=== PATIENT | female | born 1985 | race Caucasian/White ===

== ENCOUNTER 2018-07-11 21:35 | Observation (INO) | payer MEDICAID, OTHER ==
[2018-07-11] MEDS ORDERED: Sodium Chloride 0.9% 1,000 ML IV SCH (22:15)
[2018-07-11] MEDS ORDERED: HYDROmorphone 1 MG/ML Syringe IVPUSH ONE (22:44)
[2018-07-11] MEDS ORDERED: Ondansetron 4 MG/2 ML SDV IVPUSH ONE (23:03)
--- NOTE | 2018-07-11 23:12 | EDM.PDOC ---
ED HPI GENERAL MEDICAL PROBLEM - General Chief Complaint: Flank Pain Stated Complaint: STONE Time Seen by Provider: 07/11/18 22:06 Source of Information: Reports: Patient, Family History Limitations: Reports: No Limitations - History of Present Illness INITIAL COMMENTS - FREE TEXT/NARRATIVE: Abdominal pain: This is a 32-year-old female presents emergency room with complaints of abdominal pain for 1 week. She comes in tonight due to worsening pain, nausea and abdominal bloating. She did eat supper on few bites of artichoke dip and chips and 2 and half chicken wings. Past history of kidney stones, surgeries for kidney stones, laparoscopic Yoly, hysterectomy, tummy tuck Duration: Week(s): (1), Getting Worse Location: Reports: Abdomen Quality: Reports: Same as Previous Episode Severity: Moderate Improves with: Reports: None Worsens with: Reports: None Associated Symptoms: Reports: Loss of Appetite, Nausea/Vomiting, Weakness Right Lower Abdominal Pain Score (Numeric/FACES): 8 - Related Data Allergies Allergy/AdvReac Type Severity Reaction Status Date / Time cefaclor [From Ceclor] Allergy Rash Verified 09/05/15 13:26 cephalexin monohydrate Allergy Hives Verified 09/05/15 13:26 [From Keflex] doxycycline Allergy Hives Verified 09/05/15 13:26 Iodinated Contrast- Oral and Allergy Hives Verified 09/05/15 13:26 IV Dye Penicillins Allergy Hives Verified 09/05/15 13:26 Sulfa (Sulfonamide Allergy Hives Verified 09/05/15 13:26 Antibiotics) Home Meds: Home Meds Albuterol Sulfate [Proair Hfa] 8.5 gm IH Q4H PRN 08/30/13 [History] metFORMIN [Glucophage XR] 500 mg PO DAILY 08/30/13 [History] Tamsulosin HCl [Flomax] 0.4 mg PO DAILY 12/04/15 [History] oxyCODONE HCl/Acetaminophen [Percocet 5-325 mg Tablet] 1 tab PO Q4H 12/04/15 [ History] Spironolactone 50 mg PO DAILY 07/11/18 [History] Past Medical History - Past Health History Medical/Surgical History: Denies Medical/Surgical History Respiratory History: Reports: Asthma Genitourinary History: Reports: Renal Calculus Other Genitourinary History: 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: Endometrial Ablation, Polycystic Ovaries, , Spontaneous Other Dermatologic History: acne - Infectious Disease History Infectious Disease History: Reports: Chicken Pox - Past Surgical History GI Surgical History: Reports: Cholecystectomy, Hernia, Abdominal Social & Family History - Tobacco Use Smoking Status *Q: Never Smoker - Caffeine Use Caffeine Use: Reports: Coffee - Recreational Drug Use Recreational Drug Use: No - Living Situation & Occupation Occupation: Employed ED ROS GENERAL - Review of Systems Review Of Systems: See Below Constitutional: Reports: Other (Abdominal pain and discomfort 1 week) HEENT: Reports: No Symptoms Respiratory: Reports: No Symptoms Cardiovascular: Reports: No Symptoms Endocrine: Reports: No Symptoms GI/Abdominal: Reports: Abdominal Pain, Distension : Reports: Flank Pain (Right) Musculoskeletal: Reports: Back Pain (Right-sided) Skin: Reports: No Symptoms Neurological: Reports: No Symptoms Psychiatric: Reports: No Symptoms Hematologic/Lymphatic: Reports: No Symptoms Immunologic: Reports: No Symptoms ED EXAM, GENERAL - Physical Exam Exam: See Below Exam Limited By: No Limitations General Appearance: Alert, WD/WN, Moderate Distress (Appears ill and uncomfortable.) Eye Exam: Bilateral Eye: Normal Inspection Ears: Normal External Exam Nose: Normal Inspection Throat/Mouth: Normal Inspection Head: Atraumatic, Normocephalic Neck: Normal Inspection, Supple, Full Range of Motion Respiratory/Chest: No Respiratory Distress, No Accessory Muscle Use Cardiovascular: No Edema GI/Abdominal: Distended (Mild), Tender (Right upper quadrant), Abnormal Bowel Sounds (Hypoactive bowel sounds noted throughout the abdomen.) (Female) Exam: Deferred Rectal (Female) Exam: Deferred Back Exam: Normal Inspection, CVA Tenderness (R) (Right), Muscle Spasm Extremities: Normal Inspection, Normal Range of Motion, Non-Tender, Normal Capillary Refill, No Pedal Edema Neurological: Alert, Oriented, CN II-XII Intact, Normal Cognition, Normal Gait, Normal Reflexes, No Motor/Sensory Deficits Psychiatric: Normal Affect, Normal Mood, Tearful Skin Exam: Warm, Dry, Intact, Normal Color, No Rash Lymphatic: No Adenopathy Course - Vital Signs Last Recorded V/S: Last Vital Signs Temp 36.2 C 07/11/18 22:06 Pulse 76 07/11/18 23:28 Resp 18 07/11/18 23:28 BP 132/75 07/11/18 23:28 Pulse Ox 94 L 07/11/18 23:28 - Orders/Labs/Meds Orders: Active Orders 24 hr Category Date Time Status Patient Status Manage Transfer [TRANSFER] Routine ADT 07/12/18 00:04 Ordered Abdomen Pelvis wo Cont [CT] Stat Exams 07/11/18 22:54 Taken UA W/MICROSCOPIC [URIN] Urgent Lab 07/11/18 22:05 Ordered Sodium Chloride 0.9% [Normal Saline] 1,000 ml Med 07/11/18 22:15 Active IV ASDIRECTED Resuscitation Status Routine Resus Stat 07/12/18 00:05 Ordered Medication Orders Sodium Chloride (Normal Saline) 1,000 mls @ 999 mls/hr IV ASDIRECTED JEANIE Last Admin: 07/11/18 22:33 Dose: 999 mls/hr Labs: Laboratory Tests 07/11/18 07/11/18 07/11/18 Range/Units 22:05 22:06 22:12 WBC 8.7 (4.5-11.0) K/uL RBC 4.81 (3.30-5.50) M/uL Hgb 14.3 (12.0-15.0) g/dL Hct 40.9 (36.0-48.0) % MCV 85 (80-98) fL MCH 30 (27-31) pg MCHC 35 (32-36) % Plt Count 225 (150-400) K/uL Neut % (Auto) 59 (36-66) % Lymph % (Auto) 32 (24-44) % [place] % (Auto) 7 H (2-6) % Eos % (Auto) 2 (2-4) % Baso % (Auto) 1 (0-1) % Sodium 139 L (140-148) mmol/L Potassium 3.9 (3.6-5.2) mmol/L Chloride 105 (100-108) mmol/L Carbon Dioxide 25 (21-32) mmol/L Anion Gap 12.9 (5.0-14.0) mmol/L BUN 17 (7-18) mg/dL Creatinine 0.9 (0.6-1.0) mg/dL Est Cr Clr Drug Dosing 69.66 mL/min Estimated GFR (MDRD) > 60 (>60) Glucose 114 H (74-106) mg/dL Calcium 9.0 (8.5-10.1) mg/dL Urine Color Yellow Urine Appearance Clear Urine pH 6.0 (4.5-8.0) Ur Specific [place] 1.010 (1.008-1.030) Urine Protein Negative (NEGATIVE) mg/dL Urine Glucose (UA) Normal (NEGATIVE) mg/dL Urine Ketones Negative (NEGATIVE) mg/dL Urine Occult Blood Negative (NEGATIVE) Urine Nitrite Negative (NEGATIVE) Urine Bilirubin Negative (NEGATIVE) Urine Urobilinogen Normal (NORMAL) mg/dL Ur Leukocyte Esterase Negative (NEGATIVE) Urine RBC Not seen (0-5) Urine WBC 0-5 (0-5) Ur Epithelial Cells Few Amorphous Sediment Not seen Urine Bacteria Moderate Urine Mucus Not seen Meds: Medications Generic Name Dose Route Start Last Admin Trade Name Freq PRN Reason Stop Dose Admin Sodium Chloride 1,000 mls @ 999 mls/hr 07/11/18 22:15 07/11/18 22:33 Normal Saline IV 999 mls/hr ASDIRECTED JEANIE Administration Discontinued Medications Generic Name Dose Route Start Last Admin Trade Name Freq PRN Reason Stop Dose Admin Fentanyl 50 mcg 07/11/18 23:19 07/11/18 23:24 Sublimaze IVPUSH 07/11/18 23:20 50 mcg ONETIME ONE Administration Hydromorphone HCl 1 mg 07/11/18 22:44 07/11/18 23:02 Dilaudid IVPUSH 07/11/18 22:45 1 mg ONETIME ONE Administration Ondansetron HCl 4 mg 07/11/18 23:03 07/11/18 23:05 Zofran IVPUSH 07/11/18 23:04 4 mg ONETIME ONE Administration - Re-Assessments/Exams Free Text/Narrative Re-Assessment/Exam: 07/11/18 23:13 Will order CBC, chemistry, urine, to rule out illness, disease Imaging abdominal pelvis CT without contrast, patient has contrast dye allergy. IV fluids normal saline at 1000 mL's per hour, Zofran 4 mg IV, Dilaudid 1 mg IV Discussed with Mrs. Weeks and partner the plan of care. They agree with plan of care Departure - Departure Time of Disposition: 00:31 Disposition: Admitted As Inpatient 64 Condition: Good Clinical Impression: Flank pain - Discharge Information Instructions: Kidney Stones, [id number], Flank Pain, Adult, [id number] Referrals: PCP,None [Primary Care Provider] - Forms: ED Department Discharge Care Plan Goals: Transferred to [address] [place] [address] admission observation status - Problem List & Annotations (1) Kidney stone SNOMED Code(s): 88295596 Code(s): N20.0 - CALCULUS OF KIDNEY Status: Acute Priority: High Current Visit: Yes (2) Flank pain SNOMED Code(s): 379309527 Code(s): R10.9 - UNSPECIFIED ABDOMINAL PAIN Status: Acute Priority: High Current Visit: Yes - Problem List Review Problem List Initiated/Reviewed/Updated: Yes - My Orders Last 24 Hours: My Active Orders 07/11/18 22:05 UA W/MICROSCOPIC [URIN] Urgent 07/11/18 22:15 Sodium Chloride 0.9% [Normal Saline] 1,000 ml IV ASDIRECTED 07/11/18 22:54 Abdomen Pelvis wo Cont [CT] Stat 07/12/18 00:04 Patient Status Manage Transfer [TRANSFER] Routine 07/12/18 00:05 Resuscitation Status Routine - Assessment/Plan Last 24 Hours: My Active Orders 07/11/18 22:05 UA W/MICROSCOPIC [URIN] Urgent 07/11/18 22:15 Sodium Chloride 0.9% [Normal Saline] 1,000 ml IV ASDIRECTED 07/11/18 22:54 Abdomen Pelvis wo Cont [CT] Stat 07/12/18 00:04 Patient Status Manage Transfer [TRANSFER] Routine 07/12/18 00:05 Resuscitation Status Routine Plan: Transferred to [address] [place] [address] admission observation status
[2018-07-11] MEDS ORDERED: fentaNYL 100 MCG/2 ML SDV IVPUSH ONE (23:19)
--- NOTE | 2018-07-12 00:25 | PCM.HP ---
H&P History of Present Illness - General Date of Service: 07/11/18 Admit Problem/Dx: Admission Diagnosis/Problem Admission Diagnosis/Problem Kidney stone Source of Information: Patient, Family () - History of Present Illness Duration of Symptoms: Reports: Week(s): (one) Location: Reports: Abdomen, Back Quality: Reports: Same as Previous Episode Severity: Severe (rates pain 10/10) Improves with: Reports: Medication Worsens with: Reports: None Associated Symptoms: Reports: Loss of Appetite, Malaise, Nausea/Vomiting, Other (Insomnia) Right Lower Abdominal Pain Score (Numeric/FACES): 8 - Related Data Allergies/Adverse Reactions: Allergies Allergy/AdvReac Type Severity Reaction Status Date / Time cefaclor [From Ceclor] Allergy Rash Verified 09/05/15 13:26 cephalexin monohydrate Allergy Hives Verified 09/05/15 13:26 [From Keflex] doxycycline Allergy Hives Verified 09/05/15 13:26 Iodinated Contrast- Oral and Allergy Hives Verified 09/05/15 13:26 IV Dye Penicillins Allergy Hives Verified 09/05/15 13:26 Sulfa (Sulfonamide Allergy Hives Verified 09/05/15 13:26 Antibiotics) Home Medications: Home Meds Albuterol Sulfate [Proair Hfa] 8.5 gm IH Q4H PRN 08/30/13 [History] metFORMIN [Glucophage XR] 500 mg PO DAILY 08/30/13 [History] Tamsulosin HCl [Flomax] 0.4 mg PO DAILY 12/04/15 [History] oxyCODONE HCl/Acetaminophen [Percocet 5-325 mg Tablet] 1 tab PO Q4H 12/04/15 [ History] Spironolactone 50 mg PO DAILY 07/11/18 [History] Past Medical History - Past Health History Medical/Surgical History: Denies Medical/Surgical History Respiratory History: Reports: Asthma Genitourinary History: Reports: Renal Calculus Other Genitourinary History: 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, Polycystic Ovaries, , Spontaneous Other Dermatologic History: acne - Infectious Disease History Infectious Disease History: Reports: Chicken Pox - Past Surgical History GI Surgical History: Reports: Cholecystectomy, Hernia, Abdominal Social & Family History - Tobacco Use Smoking Status *Q: Never Smoker - Caffeine Use Caffeine Use: Reports: Coffee - Recreational Drug Use Recreational Drug Use: No - Living Situation & Occupation Occupation: Employed H&P Review of Systems - Review of Systems: Review Of Systems: See Below General: Reports: Fatigue HEENT: Reports: No Symptoms Pulmonary: Reports: No Symptoms Cardiovascular: Reports: No Symptoms Gastrointestinal: Reports: Abdominal Pain, Distension, Nausea, Vomiting Genitourinary: Reports: Dysuria, Pain Musculoskeletal: Reports: Back Pain (Right-sided flank pain), Muscle Pain Skin: Reports: No Symptoms Psychiatric: Reports: No Symptoms Neurological: Reports: No Symptoms Hematologic/Lymphatic: Reports: No Symptoms Immunologic: Reports: No Symptoms Exam - Exam Exam: See Below - Vital Signs Vital Signs: Last Vital Signs Temp 36.2 C 07/11/18 22:06 Pulse 76 07/11/18 23:28 Resp 18 07/11/18 23:28 BP 132/75 07/11/18 23:28 Pulse Ox 94 L 07/11/18 23:28 Weight: 72.1 kg - Exam General: Alert, Oriented, Severe Distress (Rates pain 10 on a 10) HEENT: PERRLA, Conjunctiva Clear, EACs Clear, EOMI, Hearing Intact, Nares Patent , Pupils Equal, Pupils Reactive, TMs Clear Neck: Supple, Trachea Midline Lungs: Clear to Auscultation Cardiovascular: Regular Rate, Regular Rhythm, Normal S1, Normal S2 GI/Abdominal Exam: Normal Bowel Sounds, Distended, Tender (Especially right mid to upper quadrant) (Female) Exam: Deferred Rectal (Female) Exam: Deferred Back Exam: CVA Tenderness (R), Muscle Spasm Extremities: Normal Inspection, Normal Range of Motion, Non-Tender, No Pedal Edema, Normal Capillary Refill Skin: Warm, Dry, Intact Neurological: Cranial Nerves Intact, Reflexes Equal Bilateral Neuro Extensive - Mental Status: Alert, Oriented x3, Normal Mood/Affect, Normal Cognition, Memory Intact Neuro Extensive - Motor, Sensory, Reflexes: CN II-XII Intact, Normal Gait, Normal Reflexes Psychiatric: Anxious (Tearful from being in pain) - Patient Data Lab Results Last 24 hrs: Laboratory Results - last 24 hr 07/11/18 07/11/18 07/11/18 Range/Units 22:05 22:06 22:12 WBC 8.7 (4.5-11.0) K/uL RBC 4.81 (3.30-5.50) M/uL Hgb 14.3 (12.0-15.0) g/dL Hct 40.9 (36.0-48.0) % MCV 85 (80-98) fL MCH 30 (27-31) pg MCHC 35 (32-36) % Plt Count 225 (150-400) K/uL Neut % (Auto) 59 (36-66) % Lymph % (Auto) 32 (24-44) % [place] % (Auto) 7 H (2-6) % Eos % (Auto) 2 (2-4) % Baso % (Auto) 1 (0-1) % Sodium 139 L (140-148) mmol/L Potassium 3.9 (3.6-5.2) mmol/L Chloride 105 (100-108) mmol/L Carbon Dioxide 25 (21-32) mmol/L Anion Gap 12.9 (5.0-14.0) mmol/L BUN 17 (7-18) mg/dL Creatinine 0.9 (0.6-1.0) mg/dL Est Cr Clr Drug Dosing 69.66 mL/min Estimated GFR (MDRD) > 60 (>60) Glucose 114 H (74-106) mg/dL Calcium 9.0 (8.5-10.1) mg/dL Urine Color Yellow Urine Appearance Clear Urine pH 6.0 (4.5-8.0) Ur Specific [place] 1.010 (1.008-1.030) Urine Protein Negative (NEGATIVE) mg/dL Urine Glucose (UA) Normal (NEGATIVE) mg/dL Urine Ketones Negative (NEGATIVE) mg/dL Urine Occult Blood Negative (NEGATIVE) Urine Nitrite Negative (NEGATIVE) Urine Bilirubin Negative (NEGATIVE) Urine Urobilinogen Normal (NORMAL) mg/dL Ur Leukocyte Esterase Negative (NEGATIVE) Urine RBC Not seen (0-5) Urine WBC 0-5 (0-5) Ur Epithelial Cells Few Amorphous Sediment Not seen Urine Bacteria Moderate Urine Mucus Not seen Result Diagrams: 07/11/18 22:06 07/11/18 22:12 - Problem List (1) Flank pain SNOMED Code(s): 160158515 ICD Code: R10.9 - UNSPECIFIED ABDOMINAL PAIN Status: Acute Priority: High Current Visit: Yes Problem List Initiated/Reviewed/Updated: Yes Orders Last 24hrs: Active Orders 24 hr Category Date Time Status Patient Status Manage Transfer [TRANSFER] Routine ADT 07/12/18 00:04 Ordered Abdomen Pelvis wo Cont [CT] Stat Exams 07/11/18 22:54 Taken UA W/MICROSCOPIC [URIN] Urgent Lab 07/11/18 22:05 Ordered Sodium Chloride 0.9% [Normal Saline] 1,000 ml Med 07/11/18 22:15 Active IV ASDIRECTED Resuscitation Status Routine Resus Stat 07/12/18 00:05 Ordered Medication Orders Sodium Chloride (Normal Saline) 1,000 mls @ 999 mls/hr IV ASDIRECTED JEANIE Last Admin: 07/11/18 22:33 Dose: 999 mls/hr Assessment/Plan Comment:: ASSESSMENT / PLAN -pt arrived with severe abdominal and right sided flank pain with a past week. She is feeling nauseated with severe back and low abdomen pain. She reports pain has been consistent 1 week, unable to sleep for the past 2-3 nights due to pain. labs done is ER , CBC, CMP; normal. Urine with micro negative for hematuria or infectious process. Imaging: Abdomen pelvis without contrast there are punctuate 1 mm stone present in the mid zone and lower pole of the right kidney. No definite ureteral calculi seen. In the lower pole of the left kidney there is a 1 mm and 4 mm stone present. A 1 mm stone is present in the mid zone of the left kidney. No definite ureteral calculi seen. Plan -Admit Observation 2 North for further monitoring Bilateral Kidney stones, with right flank pain -Iv fluids Normal Saline at 125ml/hr -pain medication, fentanyl [employer]ESSION[employer] pump -Advise to notify nurses of any fever, chills, worsen pain or other symptoms -strain all urine -And a.m. labs: CBC, BMP Maintenance issues -Orders home meds: on hold -Nutrition: 2 g sodium diet -Angel catheter not indicated at this time -DVT: SCDs -GI Prophalaxis; Protonix 40mg daily CODE STATUS: Full Admission status: Admit to Observation -I expect this patient to stay less than 24 hours, not to exceed 96 hours for evaluation and management of this problem. Disposition: home with family [facility]
[2018-07-12] MEDS ORDERED: Docusate Sodium 100 MG Cap PO PRN (00:39)
[2018-07-12] MEDS ORDERED: Acetaminophen 325 MG Tab PO PRN (00:39)
[2018-07-12] MEDS ORDERED: Naloxone 0.4 MG/ML SDV IVPUSH PRN (00:39)
[2018-07-12] MEDS ORDERED: Sodium Chloride 0.9% 1,000 ML IV SCH (00:39)
[2018-07-12] MEDS ORDERED: LORazepam 2 MG/ML SDV IV PRN (00:39)
[2018-07-12] MEDS ORDERED: fentaNYL/Normal Saline 600 MCG/30 ML PCA Vial IV PRN (00:39)
[2018-07-12] MEDS ORDERED: Ondansetron 4 MG/2 ML SDV IV PRN (00:39)
[2018-07-12] MEDS ORDERED: Zolpidem 5 MG Tab PO ONE (00:39)
[2018-07-12] MEDS ORDERED: Ondansetron 4 MG Tab.DIS PO PRN (00:39)
[2018-07-12] MEDS ORDERED: Albuterol 0.083% 2.5 MG/3 ML Neb Soln NEB PRN (00:39)
[2018-07-12] MEDS ORDERED: Tamsulosin 0.4 MG Cap.ER ONE (00:53)
[2018-07-12] MEDS ORDERED: Tamsulosin 0.4 MG Cap.ER PO SCH (01:00)
[2018-07-12 07:19] VITALS: BP 97/58
--- NOTE | 2018-07-12 10:46 | PCM.DCSUM1 ---
Discharge Summary - Hospital Course Brief History: 32-year-old female with history of polycystic ovarian syndrome and recurrent nephrolithiasis and ureterolithiasis who presented with right flank pain. She was admitted for pain management with suspicion for nephrolithiasis as the source of pain. Diagnosis: Stroke: No - Discharge Data Discharge Date: 07/12/18 Discharge Disposition: Home, Self-Care 01 Condition: Fair - Discharge Diagnosis/Problem(s) (1) Flank pain SNOMED Code(s): 241299010 ICD Code: R10.9 - UNSPECIFIED ABDOMINAL PAIN Status: Acute Priority: High - Patient Summary/Data Hospital Course: Conchis presented to the emergency room with several days of progressive right flank abdominal pain as well as nausea, bloating and diarrhea. She underwent an extensive workup in the emergency room including laboratory studies and a CT of the abdomen and pelvis. She had several 1 mm stones in the right kidney as well as a couple of smaller stones in the left kidney but no definite ureteral stones. There is no evidence for hydronephrosis. Kidney stones were thought to be the cause for her pain and she was admitted for pain control and observation. Overnight there were no acute issues and her pain has improved though it has not resolved. She has not had any fevers. She still feels bloated and feels that her fingers and hands are swollen. She has not had any nausea. I don't believe that 1 mm stones in the lower pole of the kidney would be large enough to cause trouble and there is no evidence for infection that I can see. I don't believe we have a great explanation for her symptoms but she is feeling a fair amount better today. She did report that this would be an atypical presentation for her kidney stones. She would like to go home at this point. I did offer an additional day and night of observation to ensure that the pain stays away but she would prefer to try and manage at home since no acute etiology and no definitive cause for her pain can be found. She does have some pain medications at home for cases like this with her recurrent of occult these with a kidney stones. - Patient Instructions Diet: Regular Diet as Tolerated Activity: As Tolerated Showering/Bathing: May Shower Notify Provider of: Fever, Increased Pain, Nausea and/or Vomiting Other/Special Instructions: 1. You were in the hospital for management of right flank pain. We did not determine a definite cause for your pain. It is possible that you had an atypical episode while passing a kidney stone. Your laboratory tests were normal. The CT scan of your abdomen and pelvis did not show a definite etiology for the pain. I would recommend that you will slowly advance your diet starting with soft and bland foods. If you have increased pain, vomiting or fever I would recommend repeat evaluation. 2. Continue your usual home medications as previously prescribed. - Discharge Plan *PRESCRIPTION DRUG MONITORING PROGRAM REVIEWED*: Not Applicable *COPY OF PRESCRIPTION DRUG MONITORING REPORT IN PATIENT YESSICA: Not Applicable Home Medications: Home Meds Albuterol Sulfate [Proair Hfa] 8.5 gm IH Q4H PRN 08/30/13 [History] metFORMIN [Glucophage XR] 500 mg PO DAILY 08/30/13 [History] Tamsulosin HCl [Flomax] 0.4 mg PO DAILY 12/04/15 [History] oxyCODONE HCl/Acetaminophen [Percocet 5-325 mg Tablet] 1 tab PO Q4H 12/04/15 [ History] Spironolactone 50 mg PO DAILY 07/11/18 [History] Patient Handouts: Kidney Stones, [id number], Flank Pain, Adult, [id number] Referrals: Mar Galindo PA-C [Ordering Only Provider] - (f/u as needed if symptoms do not continue to get better or if they get worse ) - Discharge Summary/Plan Comment DC Time >30 min.: No - Patient Data Vitals - Most Recent: Last Vital Signs Temp 36.2 C 07/12/18 07:18 Pulse 66 07/12/18 07:18 Resp 16 07/12/18 07:18 BP 97/58 L 07/12/18 07:18 Pulse Ox 97 07/12/18 08:00 Weight - Most Recent: 72.756 kg I&O - Last 24 hours: Intake & Output 07/11/18 07/12/18 07/12/18 22:59 06:59 14:59 Intake Total 812 Output Total 875 Balance -63 Lab Results - Last 24 hrs: Laboratory Results - last 24 hr 07/11/18 07/11/18 07/11/18 Range/Units 22:05 22:06 22:12 WBC 8.7 (4.5-11.0) K/uL RBC 4.81 (3.30-5.50) M/uL Hgb 14.3 (12.0-15.0) g/dL Hct 40.9 (36.0-48.0) % MCV 85 (80-98) fL MCH 30 (27-31) pg MCHC 35 (32-36) % Plt Count 225 (150-400) K/uL Neut % (Auto) 59 (36-66) % Lymph % (Auto) 32 (24-44) % [place] % (Auto) 7 H (2-6) % Eos % (Auto) 2 (2-4) % Baso % (Auto) 1 (0-1) % Sodium 139 L (140-148) mmol/L Potassium 3.9 (3.6-5.2) mmol/L Chloride 105 (100-108) mmol/L Carbon Dioxide 25 (21-32) mmol/L Anion Gap 12.9 (5.0-14.0) mmol/L BUN 17 (7-18) mg/dL Creatinine 0.9 (0.6-1.0) mg/dL Est Cr Clr Drug Dosing 69.66 mL/min Estimated GFR (MDRD) > 60 (>60) Glucose 114 H (74-106) mg/dL Calcium 9.0 (8.5-10.1) mg/dL Urine Color Yellow Urine Appearance Clear Urine pH 6.0 (4.5-8.0) Ur Specific [place] 1.010 (1.008-1.030) Urine Protein Negative (NEGATIVE) mg/dL Urine Glucose (UA) Normal (NEGATIVE) mg/dL Urine Ketones Negative (NEGATIVE) mg/dL Urine Occult Blood Negative (NEGATIVE) Urine Nitrite Negative (NEGATIVE) Urine Bilirubin Negative (NEGATIVE) Urine Urobilinogen Normal (NORMAL) mg/dL Ur Leukocyte Esterase Negative (NEGATIVE) Urine RBC Not seen (0-5) Urine WBC 0-5 (0-5) Ur Epithelial Cells Few Amorphous Sediment Not seen Urine Bacteria Moderate Urine Mucus Not seen Med Orders - Current: Current Medications Acetaminophen (Tylenol) 650 mg PO Q4H PRN PRN Reason: Pain (Mild 1-3)/fever Albuterol (Proventil Neb Soln) 2.5 mg NEB Q4H PRN PRN Reason: Shortness Of Breath/wheezing Docusate Sodium (Colace) 100 mg PO BID PRN PRN Reason: Constipation Fentanyl Citrate (Fentanyl In Ns 20 Mcg/Ml 30 Ml Logging Operations Inspector) 0 mcg IV ASDIRECTED PRN; Protocol PRN Reason: Pain Last Admin: 07/12/18 01:23 Dose: 600 mcg Sodium Chloride (Normal Saline) 1,000 mls @ 125 mls/hr IV ASDIRECTED [facility] Last Admin: 07/12/18 01:00 Dose: 125 mls/hr Lorazepam (Ativan) 1 mg IV Q6H PRN PRN Reason: Nausea/Vomiting Naloxone HCl (Narcan) 0.4 mg IVPUSH Q2M PRN PRN Reason: Respiratory Distress Ondansetron HCl (Zofran Odt) 4 mg PO Q6H PRN PRN Reason: Nausea able to take PO Ondansetron HCl (Zofran) 4 mg IV Q4H PRN PRN Reason: Nausea/Vomiting Tamsulosin HCl (Flomax) 0.4 mg PO BEDTIME [facility] Last Admin: 07/12/18 01:16 Dose: 0.4 mg Discontinued Medications Fentanyl (Sublimaze) 50 mcg IVPUSH ONETIME ONE Stop: 07/11/18 23:20 Last Admin: 07/11/18 23:24 Dose: 50 mcg Hydromorphone HCl (Dilaudid) 1 mg IVPUSH ONETIME ONE Stop: 07/11/18 22:45 Last Admin: 07/11/18 23:02 Dose: 1 mg Sodium Chloride (Normal Saline) 1,000 mls @ 999 mls/hr IV ASDIRECTED [facility] Last Admin: 07/11/18 22:33 Dose: 999 mls/hr Ondansetron HCl (Zofran) 4 mg IVPUSH ONETIME ONE Stop: 07/11/18 23:04 Last Admin: 07/11/18 23:05 Dose: 4 mg Tamsulosin HCl (Flomax) Confirm Administered Dose 0.4 mg .ROUTE .STK-MED ONE Stop: 07/12/18 00:54 Last Admin: 07/12/18 01:25 Dose: Not Given Zolpidem Tartrate (Ambien) 5 mg PO BEDTIME ONE Stop: 07/12/18 00:40 Last Admin: 07/12/18 01:25 Dose: Not Given - Exam Quality Assessment: Denies: Supplemental Oxygen General: Reports: Alert, Oriented, Cooperative, No Acute Distress Lungs: Reports: Normal Respiratory Effort GI/Abdominal Exam: Soft, No Distention, Tender (right lateral abdomen and right lower quadrant) Skin: Reports: Warm, Dry Psy/Mental Status: Reports: Alert, Normal Affect
== END 2018-07-12 11:59 | disposition home or self-care (01) ==
LOC: JP.ED 21:35 → JP.MS 07-12 00:04
PROVIDERS: ADMIT Internal Medicine; ATTEND Internal Medicine
DX: R10.9 Unspecified abdominal pain (principal); N20.0 Calculus of kidney; J45.909 Unspecified asthma, uncomplicated; E28.2 Polycystic ovarian syndrome; Z87.442 Personal history of urinary calculi; Z79.84 Long term (current) use of oral hypoglycemic drugs; Z79.899 Other long term (current) drug therapy
CPT/HCPCS: 36415; 51798; 74176; 80048; 81001; 85025; 96361; 96374; 96375; 99285; A9270; J1170; J2405; J3010; J7030; G0378

== ENCOUNTER 2018-08-09 18:49 | Emergency (ER) | payer MEDICAID ==
[2018-08-09 19:05] VITALS: BP 114/64
--- NOTE | 2018-08-09 19:29 | EDM.PDOC ---
ED HPI GENERAL MEDICAL PROBLEM - General Chief Complaint: Genitourinary Problem Stated Complaint: kidney stone Time Seen by Provider: 08/09/18 19:23 Source of Information: Reports: Patient, RN Notes Reviewed History Limitations: Reports: No Limitations - History of Present Illness INITIAL COMMENTS - FREE TEXT/NARRATIVE: 32-year-old female presents to the emergency department today complaint of left flank pain, she has a history of nephrolithiasis multiple times recently had a CT scan done about 4 weeks ago which did show 4 mm stone. She has been straining her urine which has shown multiple stones in the urine. Was in the clinic 5 days ago urinalysis revealed a large amount of blood. Flank Pain Score (Numeric/FACES): 8 - Related Data Allergies Allergy/AdvReac Type Severity Reaction Status Date / Time cefaclor [From Ceclor] Allergy Rash Verified 08/09/18 19:06 cephalexin monohydrate Allergy Hives Verified 08/09/18 19:06 [From Keflex] doxycycline Allergy Hives Verified 08/09/18 19:06 Iodinated Contrast- Oral and Allergy Hives Verified 08/09/18 19:06 IV Dye Penicillins Allergy Hives Verified 08/09/18 19:06 Sulfa (Sulfonamide Allergy Hives Verified 08/09/18 19:06 Antibiotics) Home Meds: Home Meds Albuterol Sulfate [Proair Hfa] 8.5 gm IH Q4H PRN 08/30/13 [History] metFORMIN [Glucophage XR] 500 mg PO DAILY 08/30/13 [History] Tamsulosin HCl [Flomax] 0.4 mg PO DAILY 12/04/15 [History] oxyCODONE HCl/Acetaminophen [Percocet 5-325 mg Tablet] 1 tab PO Q4H 12/04/15 [ History] Spironolactone 50 mg PO DAILY 07/11/18 [History] Past Medical History Respiratory History: Reports: Asthma Genitourinary History: Reports: Renal Calculus Other Genitourinary History: lithotripsy x 3 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: Endometrial Ablation, Polycystic Ovaries, , Spontaneous Dermatologic History: Reports: Other (See Below) Other Dermatologic History: acne - Infectious Disease History Infectious Disease History: Reports: Chicken Pox - Past Surgical History HEENT Surgical History: Reports: Tonsillectomy GI Surgical History: Reports: Cholecystectomy, Hernia, Abdominal Female Surgical History: Reports: Hysterectomy, Lithotripsy/ESWL, Other (See Below) Other Female Surgeries/Procedures: PCOS Social & Family History - Family History Family Medical History: Noncontributory - Tobacco Use Smoking Status *Q: Never Smoker - Caffeine Use Caffeine Use: Reports: Coffee, Soda Caffeine Use Comment: a cup a day - Recreational Drug Use Recreational Drug Use: No - Living Situation & Occupation Occupation: Employed ED ROS GENERAL - Review of Systems Review Of Systems: See Below Constitutional: Denies: Fever, Chills HEENT: Reports: No Symptoms Respiratory: Reports: No Symptoms Cardiovascular: Reports: No Symptoms GI/Abdominal: Reports: Abdominal Pain, Nausea. Denies: Vomiting : Reports: Flank Pain, Hematuria ED EXAM, RENAL/ - Physical Exam Exam: See Below Exam Limited By: No Limitations General Appearance: Alert, Mild Distress Respiratory/Chest: No Respiratory Distress GI/Abdominal: Soft, Tender (Left flank) Course - Vital Signs Last Recorded V/S: Last Vital Signs Temp 96.6 F 08/09/18 19:06 Pulse 69 08/09/18 19:06 Resp 13 08/09/18 19:06 BP 114/64 08/09/18 19:06 Pulse Ox 96 08/09/18 19:06 - Orders/Labs/Meds Orders: Active Orders 24 hr Category Date Time Status Lactated Ringers [Ringers, Lactated] 1,000 ml Med 08/09/18 19:23 Active IV BOLUS Medication Orders Lactated Ringer's (Ringers, Lactated) 1,000 mls @ 999 mls/hr IV BOLUS ONE Stop: 08/09/18 20:23 Last Admin: 08/09/18 19:41 Dose: 999 mls/hr Labs: Laboratory Tests 08/09/18 Range/Units 19:32 Urine Color Yellow Urine Appearance Slightly cloudy Urine pH 6.0 (4.5-8.0) Ur Specific [place] 1.015 (1.008-1.030) Urine Protein Negative (NEGATIVE) mg/dL Urine Glucose (UA) Normal (NEGATIVE) mg/dL Urine Ketones Negative (NEGATIVE) mg/dL Urine Occult Blood Large (NEGATIVE) Urine Nitrite Negative (NEGATIVE) Urine Bilirubin Negative (NEGATIVE) Urine Urobilinogen Normal (NORMAL) mg/dL Ur Leukocyte Esterase Negative (NEGATIVE) Urine RBC 50-75 H (0-5) Urine WBC 0-5 (0-5) Ur Epithelial Cells Moderate Amorphous Sediment Not seen Urine Bacteria Moderate Urine Mucus Rare Meds: Medications Generic Name Dose Route Start Last Admin Trade Name Jakub PRN Reason Stop Dose Admin Lactated Ringer's 1,000 mls @ 999 mls/hr 08/09/18 19:23 08/09/18 19:41 Ringers, Lactated IV 08/09/18 20:23 999 mls/hr BOLUS ONE Administration Discontinued Medications Generic Name Dose Route Start Last Admin Trade Name Jakub PRN Reason Stop Dose Admin Ketorolac Tromethamine 30 mg 08/09/18 19:23 08/09/18 19:37 Toradol IVPUSH 08/09/18 19:24 30 mg ONETIME ONE Administration Ketorolac Tromethamine 30 mg 08/09/18 19:27 08/09/18 19:43 Toradol IVPUSH 08/09/18 19:28 Not Given ONETIME ONE Ondansetron HCl 4 mg 08/09/18 19:27 08/09/18 19:34 Zofran IVPUSH 08/09/18 19:28 4 mg ONETIME ONE Administration Departure - Departure Time of Disposition: 20:17 Disposition: Home, Self-Care 01 Condition: Fair Clinical Impression: Flank pain - Discharge Information Referrals: Mar Galindo PA-C [Primary Care Provider] - Forms: ED Department Discharge Additional Instructions: Try the combination of ketorolac and hydrocodone for pain control, please follow -up with your primary care provider in the next 3-5 days for reevaluation if not better continue to push fluids - My Orders Last 24 Hours: My Active Orders 08/09/18 19:23 Lactated Ringers [Ringers, Lactated] 1,000 ml IV BOLUS - Assessment/Plan Last 24 Hours: My Active Orders 08/09/18 19:23 Lactated Ringers [Ringers, Lactated] 1,000 ml IV BOLUS Plan: Assessment Acuity = acute Site and laterality = hematuria with left flank pain Etiology = probable nephrolithiasis Manifestations = nausea Location of injury = Home Lab values = urinalysis reveals 50-75 rbc's consistent hematuria Plan She was given 30 mg Toradol IV as well as formula grams IV and 1 L of fluids provided some relief prescription written for Toradol 10 mg by mouth every 6 hours when necessary total #20 as well as hydrocodone 1 tablet by mouth 3 times a day when necessary total #25/325 follow-up primary care in 3-5 days if not better This note was dictated using [employer] recognition software please call with any questions on syntax or grammar.
[2018-08-09] MEDS: Ondansetron 4 MG/2 ML SDV IVPUSH ONE (19:34)
[2018-08-09] MEDS: Ketorolac 30 MG/ML SDV IVPUSH ONE ×2 (19:37→19:43)
[2018-08-09] MEDS: Lactated Ringers 1,000 ML IV ONE (19:41)
[2018-08-09] MEDS: fentaNYL 100 MCG/2 ML SDV IVPUSH ONE (20:31)
== END 2018-08-09 20:45 | disposition home or self-care (01) ==
LOC: JP.ED 18:49
DX: R10.9 Unspecified abdominal pain (principal); Z88.8 Allergy status to other drugs, medicaments and biological substances; Z88.2 Allergy status to sulfonamides; Z79.84 Long term (current) use of oral hypoglycemic drugs; Z79.899 Other long term (current) drug therapy
CPT/HCPCS: 81001; 96361; 96374; 96375; 99284; J1885; J2405; J3010; J7120

== ENCOUNTER 2020-07-25 20:53 | Emergency (ER) | payer MEDICAID ==
[2020-07-25 21:02] VITALS: BP 126/71; PULSE 78
[2020-07-25] MEDS ORDERED: Ondansetron 4 MG Tab.DIS PO ONE (21:17)
[2020-07-25] MEDS ORDERED: HYDROmorphone 0.5 MG/0.5 ML Syringe IVPUSH ONE (21:21)
--- NOTE | 2020-07-25 21:27 | EDM.PDOC ---
ED HPI GENERAL MEDICAL PROBLEM - General Chief Complaint: Abdominal Pain Stated Complaint: ABD,RIGHT SIDE PAIN Time Seen by Provider: 07/25/20 21:10 Source of Information: Reports: Patient, Old Records, RN History Limitations: Reports: No Limitations - History of Present Illness INITIAL COMMENTS - FREE TEXT/NARRATIVE: 34 yo female with a pHx of several abdominal surgeries presents with a week of progressive RLQ abdominal pain and bloating. Sx's much worse over the past couple of hrs. Has nausea without vomiting. No change in bowels. No fever. Has had a hysterectomy. Has not been to the clinic for this. Onset: Gradual Onset Date: 07/19/20 Duration: Week(s): (1), Getting Worse Location: Reports: Abdomen Quality: Reports: Ache, Pressure Severity: Moderate Improves with: Reports: None Worsens with: Reports: Other (time) Context: Reports: Other (See HPI) Associated Symptoms: Reports: Loss of Appetite, Nausea/Vomiting (no vomiting). 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) (none) right side abd Pain Score (Numeric/FACES): 7 - Related Data Allergies Allergy/AdvReac Type Severity Reaction Status Date / Time cefaclor [From Ceclor] Allergy Rash Verified 07/25/20 21:39 cephalexin monohydrate Allergy Hives Verified 07/25/20 21:39 [From Keflex] doxycycline Allergy Hives Verified 07/25/20 21:39 Iodinated Contrast Media Allergy Hives Verified 07/25/20 21:39 Penicillins Allergy Hives Verified 07/25/20 21:39 Sulfa (Sulfonamide Allergy Hives Verified 07/25/20 21:39 Antibiotics) Home Meds: Home Meds Albuterol Sulfate [Proair Hfa] 8.5 gm IH Q4H PRN 08/30/13 [History] metFORMIN [Glucophage XR] 850 mg PO BID 08/30/13 [History] Tamsulosin HCl [Flomax] 0.4 mg PO DAILY PRN 12/04/15 [History] oxyCODONE HCl/Acetaminophen [Percocet 5-325 mg Tablet] 1 tab PO Q4H 12/04/15 [History] Spironolactone 50 mg PO DAILY 07/11/18 [History] ISOtretinoin [Amnesteem] 40 mg PO DAILY 07/25/20 [History] Past Medical History Respiratory History: Reports: Asthma Genitourinary History: Reports: Renal Calculus Other Genitourinary History: lithotripsy x 3 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: Endometrial Ablation, Polycystic Ovaries, , Spontaneous Dermatologic History: Reports: Other (See Below) Other Dermatologic History: acne - Infectious Disease History Infectious Disease History: Reports: Chicken Pox - Past Surgical History HEENT Surgical History: Reports: Tonsillectomy GI Surgical History: Reports: Cholecystectomy, Hernia, Abdominal Female Surgical History: Reports: Hysterectomy, Lithotripsy/ESWL, Other (See Below) Other Female Surgeries/Procedures: PCOS Social & Family History - Family History Family Medical History: Noncontributory - Tobacco Use Smoking Status *Q: Never Smoker - Caffeine Use Caffeine Use: Reports: Coffee, Soda Caffeine Use Comment: a cup a day - Recreational Drug Use Recreational Drug Use: No - Living Situation & Occupation Occupation: Employed ED ROS GENERAL - Review of Systems Review Of Systems: See Below Constitutional: Reports: No Symptoms HEENT: Reports: No Symptoms Respiratory: Reports: No Symptoms Cardiovascular: Reports: No Symptoms Endocrine: Reports: No Symptoms GI/Abdominal: Reports: Abdominal Pain, Decreased Appetite, Distension, Nausea. Denies: Black Stool, Bloody Stool, Constipation, Diarrhea, Hematemesis, Hematochezia, Melena, Vomiting : Reports: No Symptoms Musculoskeletal: Reports: No Symptoms Skin: Reports: No Symptoms Neurological: Reports: No Symptoms ED EXAM, GI/ABD - Physical Exam Exam: See Below Exam Limited By: No Limitations General Appearance: Alert, WD/WN, Mild Distress Eyes: Bilateral: Normal Appearance Ears: Normal External Exam, Normal Canal, Hearing Grossly Normal Nose: Normal Inspection, No Blood Throat/Mouth: Normal Inspection, Normal Lips, Normal Oropharynx, Normal Voice, No Airway Compromise Head: Atraumatic, Normocephalic Neck: Normal Inspection Respiratory/Chest: No Respiratory Distress, Lungs Clear, Normal Breath Sounds, No Accessory Muscle Use Cardiovascular: Regular Rate, Rhythm, No Edema GI/Abdominal Exam: Normal Bowel Sounds, Soft, Distended, Rigid (tense due to distention), Tender (diffuse). No: Non-Tender, No Distention, Guarding, Rebound Back Exam: Normal Inspection. No: CVA Tenderness (R), CVA Tenderness (L) Extremities: Normal Inspection, Normal Range of Motion, Non-Tender, No Pedal Edema Neurological: Alert, Oriented, CN II-XII Intact, Normal Cognition, No Motor/Sensory Deficits Psychiatric: Normal Affect, Normal Mood Skin Exam: Warm, Dry, Intact, Normal Color, No Rash Course - Vital Signs Last Recorded V/S: Last Vital Signs Temp 37.2 C 07/25/20 21:12 Pulse 78 07/25/20 21:12 Resp 15 07/25/20 21:12 BP 126/71 07/25/20 21:12 Pulse Ox 95 07/25/20 21:12 - Orders/Labs/Meds Orders: Active Orders 24 hr Category Date Time Status Abdomen 1V Upright [CR] Stat Exams 07/25/20 21:21 Taken Lactated Ringers [Ringers, Lactated] 1,000 ml Med 07/25/20 21:30 Active IV ASDIRECTED Medication Orders Lactated Ringer's (Ringers, Lactated) 1,000 mls @ 250 mls/hr IV ASDIRECTED JEANIE Last Admin: 07/25/20 21:48 Dose: 250 mls/hr Documented by: SUSIE Labs: Laboratory Tests 07/25/20 07/25/20 07/25/20 Range/Units 21:23 21:39 21:39 WBC 7.2 (4.5-11.0) K/uL RBC 4.97 (3.30-5.50) M/uL Hgb 14.3 (12.0-15.0) g/dL Hct 43.7 (36.0-48.0) % MCV 88 (80-98) fL MCH 29 (27-31) pg MCHC 33 (32-36) % Plt Count 214 (150-400) K/uL Sodium 141 (140-148) mmol/L Potassium 3.7 (3.6-5.2) mmol/L Chloride 103 (100-108) mmol/L Carbon Dioxide 24 (21-32) mmol/L Anion Gap 14.0 (5.0-14.0) mmol/L BUN 14 (7-18) mg/dL Creatinine 1.1 H (0.6-1.0) mg/dL Est Cr Clr Drug Dosing 55.92 mL/min Estimated GFR (MDRD) 56 L (>60) Glucose 103 (74-106) mg/dL Calcium 9.5 (8.5-10.1) mg/dL C-Reactive Protein (0.0-0.3) mg/dL Urine Color Yellow (YELLOW) Urine Appearance Slightly cloudy A (CLEAR) Urine pH 7.0 (5.0-8.0) Ur Specific [place] 1.020 (1.008-1.030) Urine Protein Negative (NEGATIVE) mg/dL Urine Glucose (UA) Negative (NEGATIVE) mg/dL Urine Ketones Negative (NEGATIVE) mg/dL Urine Occult Blood Negative (NEGATIVE) Urine Nitrite Negative (NEGATIVE) Urine Bilirubin Negative (NEGATIVE) Urine Urobilinogen 0.2 (0.2-1.0) EU/dL Ur Leukocyte Esterase Negative (NEGATIVE) Urine RBC 0-5 (0-5) Urine WBC 0-5 (0-5) Ur Epithelial Cells Few Amorphous Sediment Not seen Urine Bacteria Few Urine Mucus Not seen 07/25/20 Range/Units 21:47 WBC (4.5-11.0) K/uL RBC (3.30-5.50) M/uL Hgb (12.0-15.0) g/dL Hct (36.0-48.0) % MCV (80-98) fL MCH (27-31) pg MCHC (32-36) % Plt Count (150-400) K/uL Sodium (140-148) mmol/L Potassium (3.6-5.2) mmol/L Chloride (100-108) mmol/L Carbon Dioxide (21-32) mmol/L Anion Gap (5.0-14.0) mmol/L BUN (7-18) mg/dL Creatinine (0.6-1.0) mg/dL Est Cr Clr Drug Dosing mL/min Estimated GFR (MDRD) (>60) Glucose (74-106) mg/dL Calcium (8.5-10.1) mg/dL C-Reactive Protein 0.52 H (0.0-0.3) mg/dL Urine Color (YELLOW) Urine Appearance (CLEAR) Urine pH (5.0-8.0) Ur Specific [place] (1.008-1.030) Urine Protein (NEGATIVE) mg/dL Urine Glucose (UA) (NEGATIVE) mg/dL Urine Ketones (NEGATIVE) mg/dL Urine Occult Blood (NEGATIVE) Urine Nitrite (NEGATIVE) Urine Bilirubin (NEGATIVE) Urine Urobilinogen (0.2-1.0) EU/dL Ur Leukocyte Esterase (NEGATIVE) Urine RBC (0-5) Urine WBC (0-5) Ur Epithelial Cells Amorphous Sediment Urine Bacteria Urine Mucus Meds: Medications Generic Name Dose Route Start Last Admin Trade Name Jakub PRN Reason Stop Dose Admin Lactated Ringer's 1,000 mls @ 250 mls/hr 07/25/20 21:30 07/25/20 21:48 Ringers, Lactated IV 250 mls/hr ASDIRECTED JEANIE Administration Discontinued Medications Generic Name Dose Route Start Last Admin Trade Name Jakub PRN Reason Stop Dose Admin Bisacodyl 10 mg 07/25/20 21:51 Dulcolax RECTAL 07/25/20 21:52 ONETIME ONE Hydromorphone HCl 0.5 mg 07/25/20 21:21 07/25/20 21:35 Dilaudid IVPUSH 07/25/20 21:22 0.5 mg ONETIME ONE Administration Ondansetron HCl 4 mg 07/25/20 21:17 07/25/20 21:26 Zofran Odt PO 07/25/20 21:18 4 mg ONETIME ONE Administration - Radiology Interpretation Free Text/Narrative:: Upright abdominal X-ray-large amount of stool, no air fluid levels. - Re-Assessments/Exams Free Text/Narrative Re-Assessment/Exam: 07/25/20 22:07 Was offered enema or Dulcolax, she declined. Departure - Departure Time of Disposition: 22:10 Disposition: Home, Self-Care 01 Condition: Fair Clinical Impression: Obstipation - Discharge Information *PRESCRIPTION DRUG MONITORING PROGRAM REVIEWED*: Not Applicable *COPY OF PRESCRIPTION DRUG MONITORING REPORT IN PATIENT YESSICA: Not Applicable Instructions: Constipation, Adult, [id number] Referrals: Mar Galindo PA-C [Primary Care Provider] - Forms: ED Department Discharge Additional Instructions: Drink a double dose of Miralax twice daily until you feel cleaned out. Eat more fiber. Recheck as needed. Sepsis Event Note (ED) - Evaluation Sepsis Screening Result: No Definite Risk - Focused Exam Vital Signs: Vital Signs Temp Pulse Resp BP Pulse Ox 07/25/20 21:12 37.2 C 78 15 126/71 95 07/25/20 21:01 37.2 C 78 15 126/71 95 - My Orders Last 24 Hours: My Active Orders 07/25/20 21:21 Abdomen 1V Upright [CR] Stat 07/25/20 21:30 Lactated Ringers [Ringers, Lactated] 1,000 ml IV ASDIRECTED - Assessment/Plan Last 24 Hours: My Active Orders 07/25/20 21:21 Abdomen 1V Upright [CR] Stat 07/25/20 21:30 Lactated Ringers [Ringers, Lactated] 1,000 ml IV ASDIRECTED
[2020-07-25] MEDS ORDERED: Lactated Ringers 1,000 ML IV SCH (21:30)
[2020-07-25] MEDS ORDERED: Bisacodyl 10 MG Supp RECTAL ONE (21:51)
--- NOTE | 2020-07-26 09:23 | CR ---
Abdomen 1V Upright CLINICAL HISTORY: Lower abdominal pain FINDINGS: No free air is identified. There is some breathing motion obscuring some detail. There are surgical clips in the right upper quadrant. Small intestinal gas pattern is nonacute. There is moderate fecal retention IMPRESSION: Nonacute intestinal gas pattern Moderate fecal retention
== END 2020-07-25 22:30 | disposition home or self-care (01) ==
LOC: JP.ED 20:53
DX: K59.00 Constipation, unspecified (principal); J45.909 Unspecified asthma, uncomplicated; Z88.0 Allergy status to penicillin; Z91.041 Radiographic dye allergy status; Z88.2 Allergy status to sulfonamides; Z88.1 Allergy status to other antibiotic agents
CPT/HCPCS: 36415; 74018; 80048; 81001; 85027; 86140; 96361; 96374; 99284; A9270; J1170; J7120

== ENCOUNTER 2021-07-26 20:53 | Emergency (ER) | payer MEDICAID ==
[2021-07-26 21:03] VITALS: BP 132/62; PULSE 90
[2021-07-26] MEDS ORDERED: Ketorolac 30 MG/ML SDV IM ONE (21:44)
--- NOTE | 2021-07-26 22:03 | EDM.PDOC ---
ED HPI GENERAL MEDICAL PROBLEM - General Chief Complaint: Flank Pain Stated Complaint: PAIN URINATING HX KIDNEY STONES Time Seen by Provider: 07/26/21 21:06 Source of Information: Reports: Patient, Old Records History Limitations: Reports: No Limitations - History of Present Illness INITIAL COMMENTS - FREE TEXT/NARRATIVE: Conchis is a 35-year-old female presenting to the ED for evaluation of bladder spasms. She was diagnosed several days ago at [facility] with ureterolithiasis after having a CT of the abdomen and pelvis without contrast demonstrating a 3 x 4 mm stone in the distal left ureter that was not causing obstruction. There was no evidence for hydroureter or hydronephrosis. The patient was put on Flomax, Percocet, and oxybutynin. She has been having increasing bladder spasms despite these medications. She was recently put on ciprofloxacin for a UTI which raises concerns about an infected ureterolithiasis. He denied any fever or chills. In reviewing her [place] chart, it appears that they want to set her up on Wednesday for a ureteroscopy and laser lithotripsy with stent placement next week. This was commented by her urologist at [facility]. Lower Abdominal Pain Score (Numeric/FACES): 10 - Related Data Allergies Allergy/AdvReac Type Severity Reaction Status Date / Time cefaclor [From Ceclor] Allergy Rash Verified 07/26/21 21:02 cephalexin monohydrate Allergy Hives Verified 07/26/21 21:02 [From Keflex] clindamycin Allergy Hives Verified 07/26/21 21:27 doxycycline Allergy Hives Verified 07/26/21 21:02 Iodinated Contrast Media Allergy Hives Verified 07/26/21 21:02 Penicillins Allergy Hives Verified 07/26/21 21:02 Sulfa (Sulfonamide Allergy Hives Verified 07/26/21 21:02 Antibiotics) Home Meds: Home Meds Albuterol Sulfate [Proair Hfa] 8.5 gm IH Q4H PRN 08/30/13 [History] metFORMIN [Glucophage XR] 850 mg PO BID 08/30/13 [History] Tamsulosin HCl [Flomax] 0.4 mg PO DAILY PRN 12/04/15 [History] oxyCODONE HCl/Acetaminophen [Percocet 5-325 mg Tablet] 1 tab PO Q4H 12/04/15 [History] Spironolactone 50 mg PO DAILY 07/11/18 [History] ISOtretinoin [Amnesteem] 40 mg PO DAILY 07/25/20 [History] Oxybutynin Chloride [Oxybutynin Chloride ER] 10 mg PO DAILY 07/26/21 [History] Past Medical History Respiratory History: Reports: Asthma Genitourinary History: Reports: Renal Calculus Other Genitourinary History: 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: Endometrial Ablation, Polycystic Ovaries, , Spontaneous Dermatologic History: Reports: Other (See Below) Other Dermatologic History: acne - Infectious Disease History Infectious Disease History: Reports: Chicken Pox - Past Surgical History HEENT Surgical History: Reports: Tonsillectomy GI Surgical History: Reports: Cholecystectomy, Hernia, Abdominal Female Surgical History: Reports: Hysterectomy, Lithotripsy/ESWL, Other (See Below) Other Female Surgeries/Procedures: PCOS Dermatological Surgical History: Reports: None Social & Family History - Family History Family Medical History: No Pertinent Family History - Tobacco Use Tobacco Use Status *Q: Never Tobacco User Second Hand Smoke Exposure: No - Caffeine Use Caffeine Use: Reports: Coffee Caffeine Use Comment: a cup a day - Recreational Drug Use Recreational Drug Use: No - Living Situation & Occupation Occupation: Employed ED ROS GENERAL - Review of Systems Review Of Systems: See Below Constitutional: Reports: Diaphoresis HEENT: Reports: No Symptoms Respiratory: Reports: No Symptoms Cardiovascular: Reports: No Symptoms Endocrine: Reports: No Symptoms GI/Abdominal: Reports: Nausea : Reports: Flank Pain (She has a known left-sided nonobstructing distal ureterolithiasis found on CT scan at [facility] 2 days ago.), Other (Bladder spasms) Musculoskeletal: Reports: No Symptoms Skin: Reports: No Symptoms Neurological: Reports: No Symptoms Psychiatric: Reports: No Symptoms Hematologic/Lymphatic: Reports: No Symptoms Immunologic: Reports: No Symptoms ED EXAM, RENAL/ - Physical Exam Exam: See Below Exam Limited By: No Limitations General Appearance: Alert, Anxious, Moderate Distress Eye Exam: Bilateral Eye: PERRL Throat/Mouth: Normal Inspection, Normal Oropharynx, Normal Voice, No Airway Compromise Head: Atraumatic, Normocephalic Neck: Normal Inspection, Supple Respiratory/Chest: No Respiratory Distress, Lungs Clear, Normal Breath Sounds Cardiovascular: Normal Peripheral Pulses, Regular Rate, Rhythm, No Murmur GI/Abdominal: Normal Bowel Sounds, Soft, Non-Tender Back Exam: Normal Inspection, Full Range of Motion. No: CVA Tenderness (R), CVA Tenderness (L) Extremities: Normal Inspection, Normal Range of Motion Neurological: Alert, Oriented, Normal Cognition, No Motor/Sensory Deficits Psychiatric: Normal Affect, Anxious Skin Exam: Warm, Dry Lymphatic: No Adenopathy Course - Vital Signs Last Recorded V/S: Last Vital Signs Temp 36.6 C 07/26/21 21:02 Pulse 90 07/26/21 21:02 Resp 18 07/26/21 21:02 BP 132/62 07/26/21 21:02 Pulse Ox 96 07/26/21 21:02 - Orders/Labs/Meds Labs: Laboratory Tests 07/26/21 Range/Units 21:12 Urine Color Yellow (YELLOW) Urine Appearance Clear (CLEAR) Urine pH 6.5 (5.0-8.0) Ur Specific [place] 1.025 (1.008-1.030) Urine Protein Negative (NEGATIVE) mg/dL Urine Glucose (UA) Negative (NEGATIVE) mg/dL Urine Ketones Negative (NEGATIVE) mg/dL Urine Occult Blood Negative (NEGATIVE) Urine Nitrite Negative (NEGATIVE) Urine Bilirubin Negative (NEGATIVE) Urine Urobilinogen 0.2 (0.2-1.0) EU/dL Ur Leukocyte Esterase Negative (NEGATIVE) Urine RBC 0-5 (0-5) Urine WBC 0-5 (0-5) Ur Epithelial Cells Occasional Amorphous Sediment Occasional Urine Bacteria Occasional Urine Mucus Moderate Meds: Medications Discontinued Medications Generic Name Dose Route Start Last Admin Trade Name Jakub PRN Reason Stop Dose Admin Hydromorphone HCl 1 mg 07/26/21 22:11 07/26/21 22:23 Hydromorphone 1 Mg/Ml Syringe IM 07/26/21 22:12 1 mg ONETIME ONE Administration Ketorolac Tromethamine 30 mg 07/26/21 21:44 07/26/21 21:48 Ketorolac 30 Mg/Ml Sdv IM 07/26/21 21:45 30 mg ONETIME ONE Administration - Re-Assessments/Exams Free Text/Narrative Re-Assessment/Exam: 07/26/21 22:14 I reviewed the outside records including the phone notation that they were going to contact the patient on Wednesday to arrange for uteroscopy with laser lithotripsy and stent placement. The patient is also already on oxybutynin, Percocet, and Flomax for her ureterolithiasis. Urinalysis was obtained and is unremarkable for an acute infection. We discussed management of her pain as the Percocet does not seem to be adequate and she has agreed to try Toradol 30 mg IM. Departure - Departure Time of Disposition: 22:49 Disposition: Home, Self-Care 01 Clinical Impression: Ureterolithiasis, Renal colic on left side, Bladder spasm - Discharge Information Instructions: Renal Colic, [id number], Kidney Stones, [id number] Referrals: Mar Galindo PA-C [Primary Care Provider] - Forms: ED Department Discharge Care Plan Goals: I am sending you home with a prescription for Toradol 10 mg 4 times daily as needed pain. Please follow-up with your urologist at [facility] on Wednesday as they want to schedule you for a ureteroscopy and laser lithotripsy. If pain is uncontrollable, the next step would be to arrange for your admission for pain management until this procedure can be done. Sepsis Event Note (ED) - Evaluation Sepsis Screening Result: No Definite Risk - Focused Exam Vital Signs: Vital Signs Temp Pulse Resp BP Pulse Ox 07/26/21 21:02 36.6 C 90 18 132/62 96 - Problem List & Annotations (1) Bladder spasm Status: Acute Priority: Medium Current Visit: Yes (2) Renal colic on left side SNOMED Code(s): 1089121 Code(s): N23 - UNSPECIFIED RENAL COLIC Status: Acute Priority: Medium Current Visit: Yes (3) Ureterolithiasis SNOMED Code(s): 74888924 Code(s): N20.1 - CALCULUS OF URETER Status: Acute Priority: Medium Current Visit: Yes - Problem List Review Problem List Initiated/Reviewed/Updated: Yes
[2021-07-26] MEDS ORDERED: HYDROmorphone 1 MG/ML Syringe IM ONE (22:11)
== END 2021-07-26 23:00 | disposition home or self-care (01) ==
LOC: JP.ED 20:53
DX: N32.89 Other specified disorders of bladder (principal); N23 Unspecified renal colic; N20.1 Calculus of ureter; J45.909 Unspecified asthma, uncomplicated; Z88.0 Allergy status to penicillin; Z88.2 Allergy status to sulfonamides; Z91.041 Radiographic dye allergy status; Z88.1 Allergy status to other antibiotic agents; Z79.899 Other long term (current) drug therapy
CPT/HCPCS: 81001; 96372; 99284; J1170; J1885

== ENCOUNTER 2021-11-02 16:24 | Emergency (ER) | payer MEDICAID ==
[2021-11-02] MEDS ORDERED: Acetaminophen 500 MG Tab PO ONE (16:32)
[2021-11-02] MEDS ORDERED: Ondansetron 4 MG Tab.DIS PO ONE (16:32)
[2021-11-02] MEDS ORDERED: Ketorolac 30 MG/ML SDV IM ONE (16:33)
--- NOTE | 2021-11-02 16:40 | EDM.PDOC ---
ED HPI GENERAL MEDICAL PROBLEM - General Chief Complaint: Head Injury Stated Complaint: FALL AND HIT HEAD WITH BACK PAIN Time Seen by Provider: 11/02/21 16:25 Source of Information: Reports: Patient, Family, Old Records, RN History Limitations: Reports: No Limitations - History of Present Illness INITIAL COMMENTS - FREE TEXT/NARRATIVE: 36 yo female is brought in after a fall on the ice and hitting the back of her head and her mid back. Has had nausea with one emesis. Says she feels hot and reports a ORNELAS. No tx prior to arrival. Is not on any anticoagulants. Is here with her . May have had a brief LOC. 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) (none) head and upper back Pain Score (Numeric/FACES): 10 - Related Data Allergies Allergy/AdvReac Type Severity Reaction Status Date / Time cefaclor [From Ceclor] Allergy Rash Verified 11/02/21 16:41 cephalexin monohydrate Allergy Hives Verified 11/02/21 16:41 [From Keflex] clindamycin Allergy Hives Verified 11/02/21 16:41 doxycycline Allergy Hives Verified 11/02/21 16:41 Iodinated Contrast Media Allergy Hives Verified 11/02/21 16:41 Penicillins Allergy Hives Verified 11/02/21 16:41 Sulfa (Sulfonamide Allergy Hives Verified 11/02/21 16:41 Antibiotics) Home Meds: Home Meds Albuterol Sulfate [Proair Hfa] 8.5 gm IH Q4H PRN 08/30/13 [History] metFORMIN [Glucophage XR] 850 mg PO BID 08/30/13 [History] Tamsulosin HCl [Flomax] 0.4 mg PO DAILY PRN 12/04/15 [History] oxyCODONE HCl/Acetaminophen [Percocet 5-325 mg Tablet] 1 tab PO Q4H 12/04/15 [History] Spironolactone 50 mg PO DAILY 07/11/18 [History] ISOtretinoin [Amnesteem] 40 mg PO DAILY 07/25/20 [History] Oxybutynin Chloride [Oxybutynin Chloride ER] 10 mg PO DAILY 07/26/21 [History] Fluconazole 150 mg PO ASDIRECTED 11/02/21 [History] Past Medical History Respiratory History: Reports: Asthma Genitourinary History: Reports: Renal Calculus Other Genitourinary History: lithotripsy x 3 STEEL TIER History: Reports: Endometrial Ablation, Polycystic Ovaries, , Spontaneous Dermatologic History: Reports: Other (See Below) Other Dermatologic History: acne - Infectious Disease History Infectious Disease History: Reports: Chicken Pox - Past Surgical History HEENT Surgical History: Reports: Tonsillectomy GI Surgical History: Reports: Cholecystectomy, Hernia, Abdominal Female Surgical History: Reports: Hysterectomy, Lithotripsy/ESWL, Other (See Below) Other Female Surgeries/Procedures: PCOS Dermatological Surgical History: Reports: None Social & Family History - Family History Family Medical History: No Pertinent Family History - Caffeine Use Caffeine Use: Reports: Coffee Caffeine Use Comment: a cup a day - Living Situation & Occupation Occupation: Employed ED ROS GENERAL - Review of Systems Review Of Systems: See Below Constitutional: Reports: No Symptoms HEENT: Reports: Eye Pain ("my eyes hurt, why do my eyes hurt") Respiratory: Reports: No Symptoms Cardiovascular: Reports: No Symptoms Endocrine: Reports: No Symptoms GI/Abdominal: Reports: Nausea, Vomiting (x one). Denies: Diarrhea Musculoskeletal: Reports: Neck Pain, Back Pain Skin: Reports: No Symptoms Neurological: Reports: Headache, Other (? brief LOC, was awake by the time the walked over to her(less than 30 sec)) Psychiatric: Reports: Agitation (mild) ED EXAM, HEAD INJURY - Physical Exam Exam: See Below Exam Limited By: No Limitations General Appearance: Alert, WD/WN, Mild Distress Head: Atraumatic (no scalp tenderness or swelling), Normocephalic. No: Scalp Lacerations, Scalp Hematoma, Scalp Tenderness, Active Bleeding, Carias's Sign Eyes: Bilateral Eye: EOMI, Normal Inspection, PERRL Ears: Normal External Exam, Normal Canal, Hearing Grossly Normal, Normal TMs Nose: Normal Inspection, No Blood. 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 nml As Tested, No Motor/Sensory Deficits, Alert, Normal Mood/Affect, Oriented x 3 Skin: Normal Color, Warm/Dry - [place] Coma Score Best Eye Response ([place]): (4) Open Spontaneously Best Verbal Response (Yennifer): (5) Oriented Best Motor Response ([place]): (6) Obeys Commands Round [place] Total: 15 Course - Vital Signs Last Recorded V/S: Last Vital Signs Temp 37.1 C 11/02/21 16:30 Pulse 79 11/02/21 17:27 Resp 20 11/02/21 17:27 BP 123/65 11/02/21 17:27 Pulse Ox 98 11/02/21 17:27 - Orders/Labs/Meds Orders: Active Orders 24 hr Category Date Time Status Cervical Spine wo Cont [CT] Stat Exams 11/02/21 16:40 Taken Thoracic Spine 3V [CR] Stat Exams 11/02/21 16:35 Taken Meds: Medications Discontinued Medications Generic Name Dose Route Start Last Admin Trade Name Adonayq PRN Reason Stop Dose Admin Acetaminophen 1,000 mg 11/02/21 16:32 11/02/21 16:37 Acetaminophen 500 Mg Tab PO 11/02/21 16:33 1,000 mg ONETIME ONE Administration Hydromorphone HCl 0.5 mg 11/02/21 17:39 11/02/21 17:46 Hydromorphone 0.5 Mg/0.5 Ml Syringe IM 11/02/21 17:40 0.5 mg ONETIME ONE Administration Ketorolac Tromethamine 30 mg 11/02/21 16:33 11/02/21 16:38 Ketorolac 30 Mg/Ml Sdv IM 11/02/21 16:34 30 mg ONETIME ONE Administration Ondansetron HCl 4 mg 11/02/21 16:32 11/02/21 16:36 Ondansetron 4 Mg Tab.Dis PO 11/02/21 16:33 4 mg ONETIME ONE Administration - Radiology Interpretation Free Text/Narrative:: Head CT scan- IMPRESSION: No acute intracranial abnormality. Please note that all CT scans at this facility use dose modulation, iterative reconstruction, and/or weight-based dosing when appropriate to reduce radiation dose to as low as reasonably achievable. Dictated by Dickson Donis MD @ 11/02/2021 6:13:07 PM Cervical spine CTMPRESSION: No acute bone abnormality. Please note that all CT scans at this facility use dose modulation, iterative reconstruction, and/or weight-based dosing when appropriate to reduce radiation dose to as low as reasonably achievable. Dictated by Dickson Donis MD @ 11/02/2021 6:17:22 PM- T-spine X-rays-neg CT Results Date: 11/02/21 Departure - Departure Time of Disposition: 18:18 Disposition: Home, Self-Care 01 Condition: Fair Clinical Impression: Concussion Qualifiers: Encounter type: initial encounter Loss of consciousness presence/duration: with LOC of 30 min or less Qualified Code(s): S06.0X1A - Concussion with loss of consciousness of 30 minutes or less, initial encounter Neck strain Qualifiers: Encounter type: initial encounter Qualified Code(s): S16.1XXA - Strain of muscle, fascia and tendon at neck level, initial encounter Back contusion Qualifiers: Encounter type: initial encounter Laterality: unspecified laterality Qualified Code(s): S20.229A - Contusion of unspecified back wall of thorax, initial encounter - Discharge Information *PRESCRIPTION DRUG MONITORING PROGRAM REVIEWED*: Not Applicable *COPY OF PRESCRIPTION DRUG MONITORING REPORT IN PATIENT YESISCA: Not Applicable Instructions: Concussion, Adult, [id number] Referrals: PCP,None [Primary Care Provider] - Forms: ED Department Discharge Additional Instructions: Rest with no exertion until your headache and nausea are gone and stay away. Use Zofran as needed for nausea control. Use ibuprofen 400 mg every 6 hrs with food for pain relief. Add Percocet for added relief as needed. See your provider for recheck later this week if not improving considerably. Sepsis Event Note (ED) - Focused Exam Vital Signs: Vital Signs Temp Pulse Resp BP Pulse Ox 11/02/21 17:27 79 20 123/65 98 11/02/21 16:30 37.1 C 97 20 137/79 98 - My Orders Last 24 Hours: My Active Orders 11/02/21 16:35 Thoracic Spine 3V [CR] Stat 11/02/21 16:40 Cervical Spine wo Cont [CT] Stat - Assessment/Plan Last 24 Hours: My Active Orders 11/02/21 16:35 Thoracic Spine 3V [CR] Stat 11/02/21 16:40 Cervical Spine wo Cont [CT] Stat
[2021-11-02 17:28] VITALS: BP 123/65
[2021-11-02] MEDS ORDERED: HYDROmorphone 0.5 MG/0.5 ML Syringe IM ONE (17:39)
--- NOTE | 2021-11-02 18:13 | CRLCT ---
For Patients: As a result of the Century Cures Act, medical imaging exams and procedure reports are released immediately into your electronic medical record. You may view this report before your referring provider. If you have questions, please contact your health care provider. INDICATION: Fall. Head injury. TECHNIQUE: Multiple axial images were obtained through the brain without contrast. Sagittal and coronal re-formatted images were obtained. COMPARISON: 08/30/2013. FINDINGS: The ventricles and sulci are within normal limits. There is no mass effect or midline shift. There is no intracranial hemorrhage. The masterson-white matter differentiation is unremarkable. There is no skull fracture. IMPRESSION: No acute intracranial abnormality. Please note that all CT scans at this facility use dose modulation, iterative reconstruction, and/or weight-based dosing when appropriate to reduce radiation dose to as low as reasonably achievable. Dictated by Dickson Donis MD @ 11/02/2021 6:13:07 PM (Electronically Signed)
--- NOTE | 2021-11-02 18:17 | CRLCT ---
For Patients: As a result of the Cures Act, medical imaging exams and procedure reports are released immediately into your electronic medical record. You may view this report before your referring provider. If you have questions, please contact your health care provider. INDICATION: Fall. Injury. TECHNIQUE: Multiple axial images were obtained from the skullbase to the upper thoracic spine without contrast. Sagittal and coronal re-formatted images were obtained. COMPARISON: None. FINDINGS: There is no acute fracture or subluxation. The disc space heights are maintained. There is no prevertebral soft tissue swelling. IMPRESSION: No acute bone abnormality. Please note that all CT scans at this facility use dose modulation, iterative reconstruction, and/or weight-based dosing when appropriate to reduce radiation dose to as low as reasonably achievable. Dictated by Dickson Donis MD @ 11/02/2021 6:17:22 PM (Electronically Signed)
[2021-11-02 18:22] VITALS: PULSE 82
--- NOTE | 2021-11-03 10:50 | CR ---
Thoracic Spine 3V CLINICAL HISTORY: Fall FINDINGS: The vertebral bodies are normal in height. There is no significant osteophytosis. The pedicles are unremarkable. Alignment is maintained. There is a minimal lower thoracic levoscoliosis. Impression: Mild levoscoliosis No fracture or dislocation
== END 2021-11-02 18:37 | disposition home or self-care (01) ==
LOC: JP.ED 16:24
DX: S06.0X1A Concussion with loss of consciousness of 30 minutes or less, initial encounter (principal); S16.1XXA Strain of muscle, fascia and tendon at neck level, initial encounter; S20.224A Contusion of middle back wall of thorax, initial encounter; J45.909 Unspecified asthma, uncomplicated; Z88.1 Allergy status to other antibiotic agents; Z91.041 Radiographic dye allergy status; Z88.2 Allergy status to sulfonamides; Z88.0 Allergy status to penicillin; Z79.899 Other long term (current) drug therapy; W00.9XXA Unspecified fall due to ice and snow, initial encounter
CPT/HCPCS: 70450; 72072; 72125; 96372; 99284; A9270; J1170; J1885

== ENCOUNTER 2022-01-30 12:04 | Emergency (ER) | payer MEDICAID ==
[2022-01-30] MEDS ORDERED: diphenhydrAMINE 50 MG/ML SDV IM ONE (12:10)
[2022-01-30] MEDS ORDERED: Acetaminophen 500 MG Tab PO ONE (12:10)
[2022-01-30 12:23] VITALS: BP 144/73; PULSE 77
== END 2022-01-30 12:59 | disposition home or self-care (01) ==
LOC: JP.ED 12:04
DX: T78.40XA Allergy, unspecified, initial encounter (principal); Z88.2 Allergy status to sulfonamides; Z88.0 Allergy status to penicillin; Z91.041 Radiographic dye allergy status; Z88.1 Allergy status to other antibiotic agents
CPT/HCPCS: 96372; 99282; 99283; A9270-GY; J1200

== ENCOUNTER 2022-03-13 06:49 | Day surgery (SDC) | payer MEDICAID ==
[2022-03-13] MEDS ORDERED: fentaNYL 100 MCG/2 ML SDV ONE (07:15)
[2022-03-13] MEDS ORDERED: Propofol 200 MG/20 ML SDV ONE (07:15)
[2022-03-13] MEDS ORDERED: Midazolam 1 MG/ML 2 ML SDV ONE (07:15)
[2022-03-13] MEDS ORDERED: Glycopyrrolate 0.2 MG/ML 2 ML SDV IVPUSH ONE (07:30)
[2022-03-13] MEDS ORDERED: Dextrose 5%-Lactated Ringers 1,000 ML IV SCH (07:30)
[2022-03-13] MEDS ORDERED: Pantoprazole 40 MG Vial IVPUSH ONE (09:01)
[2022-03-13 09:57] VITALS: BP 118/76; PULSE 74
== END 2022-03-13 10:15 | disposition home or self-care (01) ==
LOC: JP.SDS 06:49
PROVIDERS: ATTEND Surgery
DX: K20.90 Esophagitis, unspecified without bleeding (principal); K44.9 Diaphragmatic hernia without obstruction or gangrene; K29.60 Other gastritis without bleeding; J45.909 Unspecified asthma, uncomplicated
CPT/HCPCS: 87081; 88305; C9113; J2250; J2704; J3010; J3490; J7121

== ENCOUNTER 2024-07-05 12:54 | Emergency (ER) | payer MEDICAID ==
[2024-07-05] MEDS ORDERED: HYDROmorphone 0.5 MG/0.5 ML Syringe IVPUSH PRN (13:23)
[2024-07-05] MEDS ORDERED: Naloxone 0.4 MG/ML SDV IVPUSH PRN ×3 (13:23→15:24)
[2024-07-05] MEDS: Ondansetron 4 MG/2 ML SDV IVPUSH ONE (13:38)
[2024-07-05] MEDS: Sodium Chloride 0.9% 1,000 ML IV SCH ×2 (13:38→15:57)
[2024-07-05] MEDS: Ketorolac 30 MG/ML SDV IVPUSH ONE (13:38)
[2024-07-05 13:39] LABS: APPEARANCE,URINE CLEAR (CLEAR); BILIRUBIN,URINE NEGATIVE (NEGATIVE); COLOR,URINE YELLOW (YELLOW); GLUCOSE,URINE NEGATIVE (NEGATIVE); KETONES,URINE NEGATIVE (NEGATIVE); LEUKOCYTE ESTERASE,URINE NEGATIVE (NEGATIVE); NITRITE,URINE NEGATIVE (NEGATIVE); OCCULT BLOOD,URINE SMALL (NEGATIVE); PROTEIN,URINE NEGATIVE (NEGATIVE); UROBILINOGEN,URINE 0.2 EU/dL (0.2-1.0)
[2024-07-05 13:42] LABS: AMPHETAMINES SCREEN, URINE NEGATIVE (NEGATIVE); BARBITURATE SCREEN,URINE NEGATIVE (NEGATIVE); BENZODIAZEPINES SCREEN,URINE NEGATIVE (NEGATIVE); METHADONE SCREEN, URINE NEGATIVE (NEGATIVE); METHAMPHETAMINES SCREEN, URINE NEGATIVE (NEGATIVE); OXYCODONE SCREEN,URINE PRESUMPTIVE POSITIVE (NEGATIVE); PROPOXYPHENE SCREEN,URINE NEGATIVE (NEGATIVE); THC SCREEN,URINE 50 NG/ML NEGATIVE (NEGATIVE)
[2024-07-05 13:45] LABS: AMORPHOUS SEDIMENT,URINE NOT SEEN; BACTERIA,URINE FEW; EPITHELIAL CELLS,URINE MODERATE; MUCUS,URINE NOT SEEN; WBC,URINE 0-5 (0-5)
[2024-07-05 13:56] LABS: BASOPHILS ABSOLUTE AUTO 0.05 K/uL (0.00-0.10); BASOPHILS PERCENT AUTO 0.7 % (0.1-1.3); EOSINOPHILS ABSOLUTE AUTO 0.12 K/uL (0.00-0.40); EOSINOPHILS PERCENT AUTO 1.8 % (0.0-5.4); HEMATOCRIT 39.7 % (34.3-46.0); HEMOGLOBIN 13.9 g/dL (11.2-15.5); IMMATURE GRAN ABSOLUTE AUTO 0.03 K/uL (0.00-0.23); IMMATURE GRAN PERCENT AUTO 0.4 % (0.0-0.7); LYMPHOCYTES ABSOLUTE AUTO 2.42 K/uL (0.8-3.3); LYMPHOCYTES PERCENT AUTO 35.3 % (11.4-47.7); MEAN CORPUSCULAR HEMOGLOBIN 30.9 pg (31.6-35.5); MEAN CORPUSCULAR VOLUME 88.2 fL (81.4-99.0); MONOCYTES ABSOLUTE AUTO 0.46 K/uL (0.20-0.90); MONOCYTES PERCENT AUTO 6.7 % (3.3-12.6); NEUTROPHILS ABSOLUTE AUTO 3.77 K/uL (1.0-7.6); NEUTROPHILS PERCENT AUTO 55.1 % (40.0-78.1); PLATELET COUNT,PLT 200 K/uL (130-375); WHITE BLOOD CELL COUNT,WBC 6.9 K/uL (3.2-11.0)
[2024-07-05] MEDS: HYDROmorphone 1 MG/ML Syringe IVPUSH ONE ×2 (14:08→14:53)
[2024-07-05 14:19] LABS: A/G RATIO 1.3 (1.2-2.2); ALANINE AMINOTRANSFERASE,ALT 21 U/L (12-78); ALBUMIN 4.1 g/dL (3.4-5.0); ALKALINE PHOSPHATASE 49 U/L (46-116); ANION GAP 8.9 mmol/L (5.0-14.0); ASPARTATE AMNIOTRANSFERASE,AST 12 U/L (15-37); BILIRUBIN TOTAL 0.8 mg/dL (0.2-1.0); BLOOD UREA NITROGEN,BUN 10 mg/dL (7-18); CALCIUM 8.7 mg/dL (8.5-10.1); CARBON DIOXIDE,CO2 27 mmol/L (21-32); CHLORIDE,CL 104 mmol/L (100-108); EST CRCL DRUG DOSING (CG) 59.15 mL/min; ESTIMATED GFR 73 mL/min (>60); GLUCOSE RANDOM 90 mg/dL (74-106); POTASSIUM,K 4.6 mmol/L (3.6-5.2); PROTEIN TOTAL,TP 7.3 g/dL (6.4-8.2); SODIUM,NA 140 mmol/L (140-148)
[2024-07-05] MEDS: Prochlorperazine 10 MG/2 ML SDV IVPUSH ONE (15:57)
[2024-07-05] MEDS: HYDROmorphone 1 MG/ML Syringe IVPUSH PRN (15:59)
[2024-07-05 17:05] VITALS: BP 113/78
[2024-07-05 17:47] VITALS: PULSE 71
== END 2024-07-05 17:20 | disposition home or self-care (01) ==
LOC: JP.ED 12:54
DX: N13.2 Hydronephrosis with renal and ureteral calculous obstruction (principal); J45.909 Unspecified asthma, uncomplicated; Z90.49 Acquired absence of other specified parts of digestive tract; Z90.710 Acquired absence of both cervix and uterus; Z88.8 Allergy status to other drugs, medicaments and biological substances; Z91.018 Allergy to other foods; Z91.041 Radiographic dye allergy status; Z88.0 Allergy status to penicillin; Z88.1 Allergy status to other antibiotic agents; Z88.5 Allergy status to narcotic agent; Z79.51 Long term (current) use of inhaled steroids; Z79.899 Other long term (current) drug therapy; Z79.84 Long term (current) use of oral hypoglycemic drugs
CPT/HCPCS: 36415; 74176; 74176-26; 80053; 80305-QW; 81001; 81025; 83605; 83690; 84145; 85025; 96361; 96374; 96375; 96376; 99284; 99284-25; J0780; J1170; J1885; J2405; J7030